=== PATIENT | female | born 1980 | race Caucasian/White ===

== ENCOUNTER 2018-09-14 16:50 | Inpatient (IN) | payer BC ==
[2018-09-14] MEDS ORDERED: EPSOM SALT 454 GM TP PRN (17:23)
[2018-09-14] MEDS ORDERED: OLIVE OIL 118 ML BTL MISC PRN (17:23)
[2018-09-14] MEDS ORDERED: IBUPROFEN 600 MG TAB PO PRN (17:23)
[2018-09-14] MEDS ORDERED: LIDOCAINE 1% 300 MG/30 ML SDV SC PRN (17:23)
[2018-09-14] MEDS ORDERED: OXYTOCIN/RINGERS LACTATE 1,000 ML IV PRN (17:23)
[2018-09-14] MEDS ORDERED: LR 1,000 ML IV PRN (17:23)
[2018-09-14] MEDS ORDERED: MISOPROSTOL 200 MCG TAB PR PRN (17:23)
[2018-09-14] MEDS ORDERED: TERBUTALINE SULFATE 1 MG/ML VIAL IV PRN (17:23)
[2018-09-14] MEDS ORDERED: MISOPROSTOL 200 MCG TAB ONE (17:27)
[2018-09-14] MEDS ORDERED: OXYTOCIN 10 UNIT/ML VIAL ONE (17:27)
[2018-09-14] MEDS ORDERED: AMMONIA AROMATIC 1 EACH AMP IH ONE (17:27)
[2018-09-14] MEDS ORDERED: LIDOCAINE 1% 300 MG/30 ML SDV ONE (17:27)
[2018-09-14] MEDS ORDERED: OLIVE OIL 118 ML BTL ONE (17:27)
[2018-09-14] MEDS ORDERED: IBUPROFEN 600 MG TAB PO ONE (17:33)
[2018-09-14 18:01] LABS: PLATELET COUNT 307 10^3/uL (150-400)
--- NOTE | 2018-09-14 18:21 | PDGENHP ---
History and Physical History and Physical: Care: [facility] HPI: Patient is a 38 yo G 2 P 1 @ 37.6 weeks that presents to L&D in active labor. Had been laboring at home for since this morning. Labor picked up quickly over the last hour. This provider was called as they entered the room at labor and delivery and was clearly in very active labor in the background. She was noted to be 9 cm by the labor and delivery nurse as this provider was in route. EDC: 09/30/2018 which is based on LMP: 12/24/2017 which is known and consistent with Ultrasound at 20 weeks. Her is complicated by: AMA, Fundal fibroid, depression taking Lexapro and Mydayis (amphetamine for ADHD) Review of Systems: Constitutional: Denies any fever, chills, or fatigue HEENT: denies any visual changes, difficulty swallowing, hearing loss Cardiovascular: Denies any chest pain, palpitations, leg swelling Respiratory: denies any cough, wheezing, or shortness of breathe GI: Denies any nausea, vomiting, diarrhea, constipation : denies any dysuria, urgency, frequency, vaginal bleeding Musculoskeletal: denies any muscle or bone pain Skin: denies any rashes Neuro: denies any headache, seizures, lightheadedness, dizziness, or loss of consciousness Psychiatric: denies any depression, anxiety, or SI/HI thoughts HISTORY: Previous OB history: 2014m no complications Past medical history: depression, fundal fibroid Past surgical history: ovarian cystectomy, appendectomy, oral surgery Social: Denies any alcohol, tobacco, or drug use. Family history: Not relevant Medications: PNV, lexapro, mydayis Allergies (list reaction): NKDA LABS: Rh: O neg ABS: Neg Rubella: Immune HbsAg: NR HIV: NR VDRL: NR 1hr: 81 GC: Neg Chlamydia: Neg GBS: neg BMI: (prepreg) 23 PHYSICAL EXAM: Constitutional: WN, A&Ox3 HEENT: normocephalic atraumatic, supple Skin: Warm, dry, intact Heart: RRR, no murmur Chest: CTA-B Abdomen: Soft, nontender, gravid SVE: 9 Extremities:neg edema, negative homans sign Neuro: grossly normal Psych: normal affect assessment: FHT and contractions difficult to fully assess due to rapid delivery. Appeared to have some variables, moderate variability was present Assessment: 1) 38 yo G 2 P 1 with IUP@ 37.6 2) active labor 3) GBS neg Plan: 1) Admit to L&D 2) Expectant management Today's visit was approximately ____ min, of which >50% of visit ___ min, was spent face to face with pt on direct counseling/coordination of care.
--- NOTE | 2018-09-14 18:23 | OBDEL ---
Info Type: Vaginal Presentation at Delivery: Vertex L&D Analgesia/Anesthesia Type: None GBS+: No Intrapartum Medications: Discontinued Medications Generic Name Dose Route Start Last Admin Trade Name Sekou PRN Reason Stop Dose Admin Ibuprofen 600 mg 09/14/18 17:23 09/14/18 17:59 Motrin PO 600 mg ONCE PRN Administration post , pain Indications for Delivery: Spontaneous Labor Vaginal Delivery - Delivery Provider Delivery Physician/CNM: Lida Coronado - Labor and Delivery Onset of Contractions Date: 09/14/18 Onset of Contractions Time: 07:30 Onset of Contractions Type: Spontaneous Rupture of Membranes Date: 09/14/18 Rupture of Membranes Time: 17:09 Rupture of Membranes Type: Spontaneous Amniotic Fluid Color: Thick Meconium Dilation Complete Date: 09/14/18 Dilation Complete Time: 17:24 Placenta Delivery Date: 09/14/18 Placenta Delivery Time: 17:34 Total Hours of Labor: 10 Vaginal Sponge Count Correct: Yes Vaginal Needle Count Correct: Yes Vaginal Sweep Performed: Yes EBL: 200 Delivery Events: Other (Specify) (short cord) Cord Gases: Cord Gases Cord Blood PCO2 26.2 mmHg (37-60) L 09/14/18 17:27 Cord Base Excess -9.7 mEq/L (-13.6--3.2) 09/14/18 17:27 Cord ABG pH 7.35 (7.10-7.37) 09/14/18 17:27 Cord VBG pH 7.40 (7.20-7.42) 09/14/18 17:27 Operative Report - Delivery Cord Gases: Cord Gases Cord Blood PCO2 26.2 mmHg (37-60) L 09/14/18 17:27 Cord Base Excess -9.7 mEq/L (-13.6--3.2) 09/14/18 17:27 Cord ABG pH 7.35 (7.10-7.37) 09/14/18 17:27 Cord VBG pH 7.40 (7.20-7.42) 09/14/18 17:27 [place] Data HALEY: 09/30/18 Gestational Age: 37 week(s) and 5 day(s) Palafox Delivery Date: 09/14/18 Delivery Time: : Sex of : Male Score (1 Min): 5 Score (5 Min): 4 ICD10 Worksheet Patient Problems: Problems Problem Status Onset Encounter for full-term uncomplicated delivery Acute - ICD10 Problem Qualifiers (1) Encounter for full-term uncomplicated delivery
[2018-09-14] MEDS ORDERED: DOCUSATE SODIUM 100 MG CAP PO PRN (18:31)
[2018-09-14] MEDS ORDERED: ACETAMINOPHEN 325 MG TAB PO SCH (18:45)
--- NOTE | 2018-09-14 20:23 | OBPP ---
Progress Note Assessment/Plan: Assessment: Plan: 09/14/18 20:21 A) Stable 3 hours , ambulating without difficulty. Bleeding WNL. P) As long as bleeding remains WNL, will discharge pt so she can be with her baby. Reviewed warning s/sxs with patient so that she will be ready to discharge. Follow up in the clinic week 2/4/6 or sooner as indicated. Subjective/ Course: 09/14/18 20:19 Baby is being transferred to [place] for more specialized care. Yue has been up to void without difficulty. Did have a little heavier bleeding about an hour after and was given pitocin. Prior to assisting up to void, fundal massaged performed and a small gush noted. Once voided fundus remained firm with minimal bleeding Objective: 09/14/18 17:00 Patient ABO/Rh O NEGATIVE 09/14/18 17:00 Uterine Position/Fundal Height: At Umbilicus Uterine Tone: Firm
--- NOTE | 2018-09-14 20:32 | OBGCSDC ---
General Delivery Information - General Info : 3 Para: 2 Abortions: 0 Type: Vaginal L&D Analgesia/Anesthesia Type: None Admission Date: 09/14/18 Labs: Patient ABO/Rh O NEGATIVE 09/14/18 17:00 Hct 36.9 % (38.0-47.0) L 09/14/18 17:00 - Hospital Course : 09/14/18 20:19 Baby is being transferred to [place] for more specialized care. Yue has been up to void without difficulty. Did have a little heavier bleeding about an hour after and was given pitocin. Prior to assisting up to void, fundal massaged performed and a small gush noted. Once voided fundus remained firm with minimal bleeding Vaginal - Delivery Provider Delivery Physician/CNM: Lida Coronado - Diagnosis Labor: Spontaneous Rupture of Membranes Type: Spontaneous Amniotic Fluid Color: Thick Meconium Delivery Events: Other (Specify) (short cord) - Delivery EBL: 200 [place] Data HALEY: 09/30/18 Gestational Age: 37 week(s) and 5 day(s) Palafox Delivery Date: 09/14/18 Delivery Time: 17:27 Sex of Infant: Male Score (1 Min): 5 Score (5 Min): 4 Discharge Information - Discharge Information Instruction/Follow Up: Two Weeks, Four Weeks, Six Weeks
[2018-09-14 21:15] VITALS: BP 117/65
[2018-09-15] MEDS ORDERED: IBUPROFEN 600 MG TAB PO SCH (00:31)
== END 2018-09-14 21:50 | disposition home or self-care (01) | DRG 807 ==
LOC: FLD 16:50
PROVIDERS: ADMIT Advanced Practice Midwife; ATTEND Advanced Practice Midwife
PROC: 10E0XZZ Delivery of Products of Conception, External Approach (ICD-10-PCS; principal; 2018-09-14)
DX: O80 Encounter for full-term uncomplicated delivery (principal); Z37.0 Single live birth; Z3A.37 37 weeks gestation of pregnancy
CPT/HCPCS: J2590